=== PATIENT | female | born 1965 | race Caucasian/White ===

== ENCOUNTER 2020-01-23 08:21 | Day surgery (SDC) | payer SELFPAY ==
--- NOTE | 2020-01-17 10:27 | EKG12_ITS ---
Test Reason : PREOP Blood Pressure : / mmHG Vent. Rate : 066 BPM Atrial Rate : 066 BPM P-R Int : 266 ms QRS Dur : 082 ms QT Int : 388 ms P-R-T Axes : 065 095 066 degrees QTc Int : 406 ms Sinus rhythm with 1st degree A-V block Low voltage QRS Borderline ECG Confirmed by ELMIRA MCKEON, REILLY ([id number]), news videotape editor FELICITAS LARKIN ([id number]) on 01/21/2020 8:08:55 AM Referred By: Sybil Trejo Confirmed By:SINDY KU MD
[2020-01-17 10:28] LABS: Hematocrit 28.4 % (37-47); Hemoglobin 8.5 g/dL (12.0-15.0); Mean Corp Hgb Conc 29.9 g/dL (32-36); Mean Corpuscular Hgb 22.9 pg (27.0-32.0); Mean Corpuscular Volume 76.5 fL (81-99); Mean Platelet Vol. 9.2 fl (6.2-12.0); Platelet Count 212 K/mm3 (150-450); Red Blood Count 3.71 M/mm3 (4.2-5.4); White Blood Count 3.6 K/mm3 (4.4-11.0)
[2020-01-17 10:58] LABS: Anion Gap 5 (5-15); BUN 16 mg/dL (7-18); BUN/Creat Ratio 18.7 RATIO (10-20); Calcium,Total 8.8 mg/dL (8.5-10.1); Chloride 108 mmol/L (98-107); Creatinine, Serum 0.86 mg/dL (0.55-1.02); EST Glomerular Filtration Rate 73 mL/min (>60); Est Glom Filt Rate - Afr Amer 88 mL/min (>60); Glucose 95 mg/dL (74-106); Potassium 3.8 mmol/L (3.5-5.1); Sodium Level 141 mmol/L (136-145)
--- NOTE | 2020-01-21 12:42 | PCM.HP.BLA ---
History and Physical Date of Admission: 01/23/20 Sybil Iniguez Physician Specialty: DIRECTOR MARKETING ANALYTICS H&P Signed Encounter Date: 01/13/2020 Expand AllCollapse All Hide copied text Marga for details Anisa Wadsworth is a 54 year old female who presents for pre op exam. Pt is scheduled for LAVH, Bilateral salpingectomy, Cystoscopy for AUB, Pelvic pain, enlarged uterus- declines Hormonal therapy. Patient denies any chest pain, shortness of breath or dizziness. ? PAST MEDICAL HISTORY PAST MEDICAL HISTORY Diagnosis Date ? Essential hypertension, benign ? ? PAST SURGICAL HISTORY PAST SURGICAL HISTORY Procedure Laterality Date ? DELIVERY ONLY ? 08/04/1998 ? , low cervical ? DELIVERY ONLY ? 08/29/2000 ? , low cervical ? LAP CHOLECYSTECT/CHOLANGIOGRAPHY ? 08/30/06 ? REPAIR UMBILICAL MARION,5+Y/O,REDUC ? 08/30/06 ? Hernia repair, umbilical >5yr ? FAMILY HISTORY FAMILY HISTORY Problem Relation Age of Onset ? Diabetes Mother ? ? Arthritis Mother ? ? Hypertension Mother ? ? Heart Father ? ? Arthritis Father ? ? Hypertension Father ? ? Seizures Child ? ? Thyroid Sister ? ? SOCIAL HISTORY Social History ? Tobacco Use ? Smoking status: Never Smoker ? Smokeless tobacco: Never Used Substance Use Topics ? Alcohol use: No ? Drug use: No ? CURRENT MEDICATIONS Current Outpatient Medications Medication Sig ? MEDICATION, NON-DATABASE Aloe Vera juice ? No current facility-administered medications for this visit. ? Allergies As of Date: 01/13/2020 (No Known Allergies) Fully Assessed 01/13/2020 ? ? REVIEW OF SYSTEMS Abdomen: No bloating, early satiety, indigestion, or increased flatulence. Bladder: no dysuria . Expanded ROS: GENERAL: Negative for fever Allergies and current medication updated:Yes ? EXAM: BP 136/86 Ht 5' 5.5 (1.66m) Wt 185 lb (83.9kg) LMP 01/06/2020 BMI 30.31 kg/(m^2). GENERAL: pleasant, female in no apparent distress HEENT: Normocephalic and atraumatic NECK: full range of motion DERMATOLOGY: Normal, without lesions, non-icteric and non-hirsute CARDIAC: regular rate and rhythm CHEST: Clear to auscultation Normal inspiratory effort NEURO: alert and oriented x3,exam grossly non-focal EXTREMITIES: normal ? Enlarged anteverted uterus that measures 121 mm x 54 mm x 74 mm. Anterior, intramural fibroid noted. The central endometrium complex measures 8.6 mm in combined thickness. No abnormal ?blood flow to suggest a polyp or focal endometrial pathology is observed within the endometrial complex. The contour of the endometrial cavity was normal on 3-D imaging. Both ovaries are not visualized. There is no free fluid visualized in the peritoneal cavity. Recommendations Follow up as clinically indicated. Menstrual History LMP on 10/05/2019 Method ====== Transvaginal ultrasound examination. 3D ultrasound examination Uterus ====== Uterus: Visualized Uterus position: anteverted Uterus long 121 mm Uterus ap 54 mm Uterus tr 74 mm Uterus Vol 254.4 cm? Endometrial thickness, total 8.6 mm Right Ovary ========= Rt ovary: Not visualized Left Ovary ======== Lt ovary: Not visualized Cul de Sac ========= Visualized. no free fluid visualized Performed By: Deisi Staley RDMS, RVT Read By: ?Ivory Greene M.D. ? ASSESSMENT AND PLAN: Encounter Diagnosis ? ? ICD-10-CM ? 1. Abnormal uterine bleeding (AUB) N93.9 ? 2. Post-op pain G89.18 oxyCODONE IR (ROXICODONE) 5 mg immediate release tablet 3. Pelvic pain in female R10.2 ? 4. Enlarged uterus N85.2 ? ? 5. Pre op instructions reviewed. covid testing reviewed 6. Pt has been counseled on risks/benefits and alternatives of surgery including but not limited to anesthesia, bleeding, infection, injury to pelvic structures including bowel, bladder, ureters and vessels. Pt wishes to proceed with surgery at this time. 7. Post op meds given- pt requesting dc home same day if no complications and meets discharge requirements. ? Sybil Trejo MD ? Procedure Criteria Procedure Type: Elective COVID Risk Discussion: The surgeon/proceduralist and patient have discussed in detail the risk of exposure to and/or potential harm posed by the COVID-19 virus with having a surgery/procedure at this time versus the risk of delaying the surgery/procedure. It is not possible to know either the risk of delaying the surgery or procedure or chance of getting an infection with perfect accuracy, but a joint decision was made between the patient and the surgeon/proceduralist to proceed at this time with the scheduled surgery/procedure as indicated on the consent form.
[2020-01-23] VITALS (12 sets, daily range): BP systolic 109–154; BP diastolic 66–91; PULSE 50–71; RESP 16–18; TEMP 36.3–36.6; O2SAT 100; BMI 30.4
[2020-01-23] MEDS: Lactated Ringers 1,000 ML 40 ML IV ×2 (08:58→13:59)
[2020-01-23] MEDS: Scopolamine 1mg/72hr Patch 1 PATCH TRANSDERM. (09:02)
[2020-01-23] MEDS: Celecoxib 200 MG Capsule 400 MG PO (09:03)
[2020-01-23] MEDS: Enoxaparin 40 MG/0.4 ML Syringe SC (09:03)
[2020-01-23] MEDS: Gabapentin 600 MG Tablet PO (09:03)
[2020-01-23] MEDS: Acetaminophen 500 MG Tablet 1000 MG PO (09:04)
[2020-01-23] MEDS: Phenazopyridine 95 MG Tablet 190 MG PO (09:04)
[2020-01-23 09:11] LABS: Internal QC Validated? YES +Cl - CLEAR BKGD
[2020-01-23 09:12] LABS: Pregnancy, Urine Negative Negative
[2020-01-23 09:25] LABS: Bedside Glucose 92 mg/dL (70-110)
[2020-01-23] MEDS: Cefazolin 2 GM in 0.9% Normal Saline 100 ML IV (11:00)
[2020-01-23] MEDS: dexAMETHasone 10 MG/ML Vial 8 MG IV (12:20)
--- NOTE | 2020-01-23 12:30 | HYST_PTH ---
PATIENT: RICK NEW LOC: [facility] U#:[id number] AGE/SX: 54/F ROOM: RE01/23/[address]: Dr. Sybil Trejo, MDDOB: 1965 BED: DIS: 01/23/2020 SPEC #: [id number] RECD: 01/23/20 14:15 STATUS: PEDRO LUIS JONY #: [id number] SACHI: 01/23/20 12:[address]: Sybil Trejo DEPT: SURGICAL PATHOLOGY RECD BY: Nakul Luo ENTERED: 01/23/20 15:06 SP TYPE: HYSTERECT OTHR DR: Dr. Daniel Gabriel MD Tissues: Uterus, NOS Procedures: Surgery Specimen Level V HEADER OPERATION: ERAS, hysterectomy, LAVH, salpingectomy, Cysto PRE-OP DIAGNOSIS: Abnormal uterine bleeding TISSUE SUBMITTED: Uterus and bilateral fallopian tubes MICROSCOPIC DIAGNOSIS Uterus and bilateral fallopian tubes, vaginal hysterectomy and bilateral salpingectomy: Cervix - chronic cystic cervicitis. Endometrium - proliferative endometrium. Myometrium - adenomyosis. Serosal surface - focal changes consistent with serosal adhesions. Bilateral fallopian tubes - no pathologic diagnosis. Paratubal cyst. SJ:rg 01/24/20 MICROSCOPIC DESCRIPTION Slides are reviewed. GROSS DESCRIPTION Received in fixative is one container labeled with the patient's name and designated uterus and bilateral fallopian tubes. The specimen consists of a hysterectomy specimen consisting of uterus with cervix and detached bilateral fallopian tubes. The uterus with cervix weighs 200 gm and measures 12 x 8 x 4.5 cm. The serosal surface is congested. The ectocervical mucosa is unremarkable. The external os is oval and patulous in contour. The endocervical canal measures 4 cm in length and the endocervical mucosa is morales, glistening and unremarkable. Sections of the cervix reveal multiple cysts filled with mucoid material. The triangular endometrial cavity measures 6 cm in length and up to 3 cm in width. The endometrium is morales, glistening without any mass lesion and measures 0.1 cm in thickness. Sections of the uterine wall reveal multiple punctate hemorrhagic areas suspicious for adenomyosis. The uterine wall measures up to 2.5 cm in thickness. The fallopian tubes are not identified as right or left. One of the fallopian tubes measures 4.5 cm in length and 0.7 cm in diameter. The fimbrial end is identified. Sections do not reveal any mass lesion. A paratubal cyst is noted measuring 0.7 cm in greatest dimension. The second fallopian tube measures 3 cm in length and 0.7 cm in diameter. The fimbrial end is identified. Sections reveal unremarkable cut surfaces. Certified Indoor Environmentalist sections are submitted in eight cassettes as follows: 1?- anterior cervix, 2 - posterior cervix, 3 & 4 - anterior uterine wall, 5 & 6 - posterior uterine wall, 7 - one fallopian tube and paratubal cyst, 8 - second fallopian tube. / DAVE:marvin 01/23/20 TC:5 CPT: 28678
[2020-01-23] MEDS: Bupivacaine Mpf 0.5% 30 ML VIAL (12:50)
--- NOTE | 2020-01-23 13:09 | OP.PCM_ITS ---
Report of Operation Date of Procedure: 01/23/20 - start time 1131: end time 1317 Pre-Operative Diagnosis: AUB, enlarged uterus, endometrial polyp, Anemia Post-Operative Diagnosis: same, abdominal wall hernia Surgery/Procedure Performed:: LAVH, Bilateral salpingectomy, cystoscopy, lysis of adhesions Description of Surgical Findings:: large anterior abdominal wall hernia- Omentum adherent - lysis of adhesions performed. Dr. Banks called intraop for recommendation- he recommends repair at later date translational specialist: Tonya Veliz - assisted with procdure- manipulation of uterus, lysis of ahesions Type of Anesthesia:: General Specimen's removed: uterus, bilatearl fallopian tubes, cervix Drains: none Estimated Blood Loss (mL): 50 Fluids Replaced: 1100 Description of Procedure: Patient take to OR and prepped and draped in usual sterile fashion in dorsal lithotomy position with her arms tucked in a neurologically safe and neutral position. The uterus sounded to 12cm. The [employer] uterine manipulator and fatima were placed. Attention was turned to the abdomen. All port sites were infiltrated with 0.5% marcaine before the incisions were made. The anterior abdominal wall was tented up with towel clamps and using a direct entry approach a 5 mm supraumbilical port was placed. Intraperitoneal placement was confirmed with the laparoscope and the pneumoperitoneum was created. The patient was placed in Trendelenburg and 5 mm right and left lower quadrant ports were placed under direct visualization. large abdominal wall hernia appreciated. Dr. Banks- general surgery called to decide mgmt - recommend repair at later date. Adhesions of omentum taken down from hernia sac. The bowel was swept away. Ovaries appeared normal. The mesosalpinx starting at fibriated end were grasped, clamped, sealed and transected with the Ligasure. The round ligaments were divided. The anterior peritoneum was dissected down to create the bladder flap with blunt dissection and the LigaSure. The uterine arteries were isolated, clamped, sealed and cut. There was minimal back bleeding from the uterus. Attention was turned to the vaginal portion of the case. The anterior and posterior vagina was infiltrated w/ lidocaine with dilute epinephrine. A circumfrential incision was made with scapel, anterior colpotomy was made with blunt and sharp dissection. The posterior culdesac was entered sharpy with curved munguia scissors. Heny clamps were placed, pedicles were transected and suture ligated. this was performed on cardinal and uterosacral ligaments. Once the uterus was freed the specimen was removed without difficulty. The specimen was handed off. The cuff was closed with interrupted 0-vicryl figure of 8 sutures. A modified Mccalls with 2-0 PDS was placed thru posterior cuff, both uterosacrals and secured in the midline. Cystoscopy performed- both jets noted and bladder intact. The pneumoperitoneum was recreated and the cuff and pedicles were hemostatic. Deshaun placed over cuff. The skin incisions were closed with skin glue and 3-0 monocryl. The vaginal sweep was completed by me. Grafts/Implants Used: none Grafts/Implants Used: none - Complications none - Admit VTE Documentation VTE Present on Admission: Yes VTE Mechan Device Prophylaxis: SCD's VTE Pharm Prophylaxis ordered?: Yes
--- NOTE | 2020-01-23 13:23 | DCINST_ITS ---
Discharge Diet: No Restrictions Discharge Activity: Return to Normal Activity, May Not Drive - while taking narcotic pain medications., May Shower May shower in (days): 1 May resume sexual activity in: 8 weeks Lifting Restrictions: 20 Call your doctor if your incision/area has: Continuous Slow Oozing, Sudden Increased Bleeding, Increased Pain/ Swelling, Increased Redness, Foul Smelling Discharge Call your doctor if you observe: Fever of 101 or Higher, Inability to urinate, Inability to have a bowel movement, Using more than one pad per hour Cleanse incision/area with: - - you have skin glue on incision sites- do not pick off. May let soap and water run over incision sites and dab dry. Allergies/Adverse Reactions: Allergies No Known Allergies Allergy (Verified 01/23/20 08:49) Medications to take at Discharge [place]-3 Fatty Acids/Fish Oil [Fish Oil 1,000 mg Capsule] 1 ea PO BID 01/16/20 Orders to be completed after discharge: T&S with Crossmatch, Red Cells Time Frame: 01/23/20, Location: None Selected Primary Care Physician: Daniel Gabriel MD [Primary Care Provider] - Test Results: Test results from this visit will be discussed in further detail at your follow- up appointment, if applicable. Please Follow Up With: Sybil Trejo MD When: as scheduled in 2 weeks Please Follow Up With: Dr. Aroldo Banks (general surgery) When: for repair of abdominal wall hernia at later date.
[2020-01-23] MEDS: Ondansetron 4 MG/2 ML Vial IV (13:30)
[2020-01-23] MEDS: Ketorolac 30 MG/ML Syringe IV (14:22)
[2020-01-23 16:32] LABS: Hematocrit 31.3 % (37-47); Hemoglobin 9.2 g/dL (12.0-15.0); Mean Corp Hgb Conc 29.4 g/dL (32-36); Mean Corpuscular Hgb 22.9 pg (27.0-32.0); Mean Corpuscular Volume 77.9 fL (81-99); Mean Platelet Vol. 10.1 fl (6.2-12.0); Platelet Count 165 K/mm3 (150-450); RBC Distribution Width CV 14.4 % (11.6-14.6); RBC Distribution Width SD 40.5 fl (35.1-43.9); Red Blood Count 4.02 M/mm3 (4.2-5.4); White Blood Count 9.8 K/mm3 (4.4-11.0)
== END 2020-01-23 18:34 | disposition home or self-care (01) ==
LOC: SDC 08:24 → AC 08:26
PROVIDERS: Anesthesiology; PCP Family Medicine; Referring Provider Obstetrics & Gynecology; Visit Provider Obstetrics & Gynecology
PROC: 0UT9FZZ Resection of Uterus, Via Natural or Artificial Opening With Percutaneous Endoscopic Assistance (ICD-10-PCS; CPT 58552; principal; 2020-01-23 12:05)
DX: N80.0 Endometriosis of uterus (principal); N83.8 Other noninflammatory disorders of ovary, fallopian tube and broad ligament; D64.9 Anemia, unspecified; K43.9 Ventral hernia without obstruction or gangrene; Z11.59 Encounter for screening for other viral diseases
CPT/HCPCS: 00944; 58552; 36415; 80048; 81025; 82962; 83735; 85027; 86850; 86900; 86901; 86920; 86922; 87635; 88307; 93005; C9803; J7040; J7120; J2405; U0003

== ENCOUNTER → 2022-01-07 | Outpatient (CLI) | payer OTHER, SELFPAY ==
[2022-01-07 10:25] LABS: Mucous, Urine 0 SEEN /hpf (<or=2+); Red Blood Cells-Urine 0 SEEN /hpf (0-5); Squamous Epithelial Cells - UA 0 SEEN /hpf (5-10)
[2022-01-07 11:14] LABS: Color, Urine Yellow (Yellow); Glucose, Dipstick Normal (Normal); Ketone-Dipstick Negative (Negative); Leukocyte Esterase-Dipstick 500 /ul (Negative); Nitrite-Dipstick Positive (Negative); Occult Blood-Urine Negative /ul (Negative); Protein-Dipstick Negative (Negative); Urine Bilirubin Dipstick Negative (Negative); Urine Clarity Sl. Cloudy (Clear); Urine Urobilinogen Normal (Normal); Urine pH 6.5 (5.0 - 8.0)
[2022-01-07 11:22] LABS: Bacteria 3+ /hpf (None Seen); Transitional Epithelial - Ur 0-5 SEEN /hpf (0-5); White Blood Cells 10-25 SEEN /hpf (0-5)
== END | disposition home or self-care (01) ==
LOC: LAB 10:18
PROVIDERS: PCP Nurse Practitioner Family; Referring Provider Surgery; Visit Provider Surgery
DX: Z87.440 Personal history of urinary (tract) infections (principal)
CPT/HCPCS: 36415; 81001; 87077; 87086; 87088; 87186

== ENCOUNTER 2022-02-02 10:59 | Observation (INO) | payer SELFPAY, OTHER ==
--- NOTE | 2022-02-01 10:52 | EKG12_ITS ---
Test Reason : PREOP Blood Pressure : / mmHG Vent. Rate : 075 BPM Atrial Rate : 075 BPM P-R Int : 214 ms QRS Dur : 082 ms QT Int : 370 ms P-R-T Axes : 043 084 052 degrees QTc Int : 413 ms Sinus rhythm with 1st degree A-V block Otherwise normal ECG Confirmed by ALIYAH MCKEON, AMBERLY ([id number]), industrial editor FELICITAS LARKIN ([id number]) on 02/02/2022 11:07:31 AM Referred By: Moises Motley Confirmed By:AMBERLY LY MD
[2022-02-01 11:42] LABS: Hematocrit 39.2 % (37-47); Hemoglobin 13.4 g/dL (12.0-15.0); Mean Corp Hgb Conc 34.2 g/dL (32-36); Mean Corpuscular Hgb 29.3 pg (27.0-32.0); Mean Corpuscular Volume 85.8 fL (81-99); Mean Platelet Vol. 8.6 fl (6.2-12.0); Platelet Count 205 K/mm3 (150-450); RBC Distribution Width SD 37.3 fl (35.1-43.9); Red Blood Count 4.57 M/mm3 (4.2-5.4); White Blood Count 5.7 K/mm3 (4.4-11.0)
[2022-02-01 12:37] LABS: Anion Gap 8 (5-15); BUN 16 mg/dL (7-18); BUN/Creat Ratio 18.2 RATIO (10-20); Calcium,Total 9.7 mg/dL (8.5-10.1); Chloride 106 mmol/L (98-107); Creatinine, Serum 0.88 mg/dL (0.55-1.02); EST Glomerular Filtration Rate 70 mL/min (>60); Est Glom Filt Rate - Afr Amer 85 mL/min (>60); Glucose 104 mg/dL (74-106); Sodium Level 140 mmol/L (136-145)
[2022-02-02] VITALS (11 sets, daily range): BP systolic 124–149; BP diastolic 72–83; PULSE 53–70; RESP 14–18; TEMP 36.1–36.9; O2SAT 98–100; BMI 28.8; BMI 28.7
--- NOTE | 2022-02-02 06:57 | DCINST_ITS ---
Discharge Instructions Procedure General Surgery Diet Discharge Diet: Light diet - advance as tolerated (if you have questions about your diet instructions, please talk to you doctor.) Activity Discharge Activity: May Not Drive (for 3-5 days or while taking narcotic pain medicine.) May shower in (days): 1 Lifting Restrictions: 10 pounds Dressing / Incision Call your doctor if your incision/area has: Continuous Slow Oozing, Sudden Increased Bleeding, Increased Pain/ Swelling, Increased Redness and Foul Smelling Discharge Call your doctor if you observe: Fever of 101 or Higher Suture Line Care: Avoid Pulling/Pushing and Avoid Pinching/Bending Additional Dressing/Incision Instructions:: Change or remove dressing in 4 days. Leave steri-strips in place for 1 week. Follow Up Care Please Follow Up With: Moises Motley MD When: Call [phone] to make an appointment to be seen in about 10 days. Test Results: Test results from this visit will be discussed in further detail at your follow- up appointment, if applicable. Discharge Plan Admission Admit Date/Time: 02/02/22 10:59 Primary Reason for Your Visit: Incarcerated incisional hernia Attending Provider: Moises Motley Primary Care Provider: Clarissa Cornejo Instructions Additional Instructions / Restrictions: Please alternate narcotic pain medication with Tylenol as needed for pain. Recommend taking Miralax daily for assistance with bowel habits. Recommend using the heating pad as needed for comfort Follow-up in 10 days with our office. Please call our office to schedule an appointment. Discharge Orders/Prescriptions Prescriptions: New oxycodone 5 mg Tablet 5 mg PO Q6H PRN PRN (Reason: Pain Score 1-10/10) 4 Days Qty: 12 0RF Referrals / Follow Up: Moises Motley MD [Med Staff - Active Staff] - (Please contact our office for a follow-up appointment for 10 days post-operative ) Clarissa Cornejo, SARWAT-C [Primary Care Provider] - Disposition Disposition (needs filled in before D/C Order can be placed): Home, Self Care
--- NOTE | 2022-02-02 06:57 | HP.PCM_ITS ---
History and Physical Date of Admission: 02/02/22 Visit Reasons:?Hernia Chief Complaint: Hernia Molder Inflated Ball Required: No Is patient in pain?: No Allergies No Known Allergies Allergy (Verified 01/07/22 09:46) Medications NK? 01/07/22 [History Confirmed 01/07/22] PFSH Surgical History?(Updated 01/07/22 @ 09:44 by Kenya Monday) History of History of cholecystectomy History of hysterectomy Family History?(Updated 01/07/22 @ 09:45 by Kenya Monday) Mother Hypertension High cholesterolSon Seizures Social History?(Updated 01/07/22 @ 09:46 by Kenya Monday) Smoking Status:? Never smoker alcohol intake:? never substance use type:? does not use HPI HPI HPI: RICK NEW, is a 56 F who presents to the office today for surgical evaluation of a ventral hernia.? On January 23, 2020 Dr. Roel Valentin performed a laparoscopic assisted vaginal hysterectomy with bilateral salpingectomy and cystoscopy and lysis of adhesions.? Dr. Aroldo Banks was asked to present to evaluate a large anterior abdominal wall hernia with adherent omentum.? No repair at that time was recommended.? The patient stated that at a later time she saw Dr. Banks and no repair was recommended.? It is noted that at the time of the patient's surgery adhesions of the omentum were laparoscopically lysed.? The patient now is complaining that the hernia is significantly enlarging and is becoming more symptomatic particularly when she is lifting or reaching overhead.? There is been no evidence of obstruction but she is not able to completely reduce the bulge. ROS General General: No weight change, appetite, fatigue, colon cancer, breast cancer or weakness HEENT HEENT: No difficulty swallowing, eye injury, eye surgery, swollen glands or hoarseness Endo Endocrine: No thyroid disease, diabetes mellitus, thyroid cancer, Hair loss, heat intolerance or cold intolerance Skin Skin: No rash or changing moles Musc Musculoskeletal: No back problems, arthritis, rheumatoid arthritis, gout or joint pain Cardio Cardiovascular: No murmur, pacemaker, heart disease, atrial fibrillation, high blood pressure, heart attack, heart stent, palpitations, shortness of breat with exertion or chest pain Psych Psychiatric: No depression, anxiety or hearing voices Resp Respiratory: No shortness of breath, No sleep apnea, No cough, No COPD, No asthma, No emphysema and No wheezing Gastro Gastrointestinal: No abdominal pain, No nausea or vomiting, No diarrhea, No constipation, No blood in stool, No acid reflux, No hemorrhoids, No ulcers, No gallbladder problem and No black,tarry stools Kelechi Hematologic: No blood thinners, No blood disorders, No bleeding, No anemia and No blood clots Neuro Neurologic: No system reviewed and no additional complaints, except as documented, No as per HPI, No abnormal gait, No abnormal hearing, No abnormal movements, No abnormal speech, No behavioral changes, No burning sensations, No confusion, No convulsions, No disequilibrium, No dizziness, No localized weakness, No frequent falls, No headache(s), No lack of coordination, No loss of vision, No memory loss, No numbness, No other visual disturbances, No radicular pain, No restless legs, No sensory deficit, No syncope, No tingling, No tremor(s), No weakness and No other Exam Const General: cooperative, comfortable and no acute distress [facility] Head: normal to inspection Eyes General: appearance normal, both eyes and all related structures Neck Neck: normal visual inspection Resp Effort & Inspection: normal respiratory effort Auscultation: clear to auscultation bilaterally Cardio Rate: regular rate Rhythm: regular rhythm GI Palpation: soft Other: Overweight, infraumbilical sizable 8 x 10 cm soft tissue bulge, palpable midline fascial defect noted Musc Cervical Spine: normal cervical lordosis Skin General: no rashes or lesions noted Neuro General: patient alert, patient awake and patient oriented x3 Extrem General: no calf tenderness Psych Appearance: grossly normal Assessment and Plan Assessment and Plan (1) Hernia: (2) Incarcerated incisional hernia: ?Status:?Acute ?Plan: The patient has a infraumbilical midline incarcerated incisional hernia related to 2 previous Pfannenstiel C-sections.? She has had a history of laparoscopic vaginal assisted hysterectomy with omentum adherent.? Her defect is enlarging and becoming symptomatic. I proposed for her a laparoscopic repair.? I have instructed her that it is likely that bladder mobilization will be required in order to place a retropubic piece of mesh.? She is aware that I will attempt to do all of the vast majority of this laparoscopically but that conversion to an open technique may be required.? She is aware of the technique, benefit, risk of alternatives.? No guarantees of success are offered.? She is aware that recurrence is a risk and that she will need to allow a extended recovery..? She has had an opportunity to ask and have questions answered.? As it is now symptomatic she is interested in proceeding with treatment. I appreciate the opportunity of assisting with her surgical care Copy: Dr. Daniel Motley M.D., F.A.C.S I have re-examined the patient. There are no clinical changes since date of exam. Moises Motley M.D., F.A.C.S.
[2022-02-02] MEDS: Lactated Ringers 1,000 ML 15 ML IV (07:00)
[2022-02-02] MEDS: Cefazolin 2 GM in 0.9% Normal Saline 100 ML IV (07:24)
--- NOTE | 2022-02-02 07:30 | HERN_PTH ---
PATIENT: RICK NEW LOC: [facility] U#:[id number] AGE/SX: 56/F ROOM: [facility] RE02/02/[address]: Dr. Moises Motley MD : 1965 BED: 1 DIS: 02/03/2022 SPEC #: [id number] RECD: 02/02/22 12:51 STATUS: PEDRO LUIS FRIEDNina #: [id number] SACHI: 02/02/22 07:[address]: Moises Motley DEPT: SURGICAL PATHOLOGY RECD BY: Nakul Luo ENTERED: 02/02/22 13:28 SP TYPE: Hernia OTHR DR: Clarissa Cornejo, RADIO EQUIPMENT INSTALLER-C Tissues: HERNIA Procedures: Surgery Specimen Level II HEADER OPERATION: Laparoscopic incarcerated ventral/incisional hernia repair with mesh PRE-OP DIAGNOSIS: Incarcerated incisional hernia TISSUE SUBMITTED: Hernia sac MICROSCOPIC DIAGNOSIS Hernia sac: Fragments of fibroadipose and fibroconnective tissue, clinically hernia sac. DAVE:marvin 02/03/2022 MICROSCOPIC DESCRIPTION Slides are reviewed. GROSS DESCRIPTION Received in fixative is one container labeled with the patient's name and designated hernia sac. The specimen consists of four variable sized pieces of morales-yellow soft tissue measuring in aggregate 8 x 6 x 1 cm. No mass lesion is identified. Farmworkers sections are submitted in one cassette. / DAVE:marvin 02/02/2022 TC:5 CPT: 49641
[2022-02-02] MEDS: BUPIVACAINE LIPOSOME/PF 20 ML VIAL OPERA.SITE (07:48)
[2022-02-02] MEDS: 0.9% Normal Saline (Pres. free 10 ML Vial (07:48)
--- NOTE | 2022-02-02 10:49 | OP.PCM_ITS ---
Report of Operation Date of Procedure: 02/02/22 Pre-Operative Diagnosis: Infraumbilical ventral incisional hernia with incarcer ated omentum. Post-Operative Diagnosis: Same Surgery/Procedure Performed:: Open/laparoscopic herniorrhaphy with bilateral transabdominal plane block. Ventral light ST mesh 20.3 cm x 25.4 cm customized to extend retropubically. Reference [id number]. Lot number [id number]. Expiry date 04/11/2023 3 secure straps utilized Description of Surgical Findings:: Timeout informed consent was obtained. 56-year-old female was taken to the operating placed on table underwent general endotracheal intubation anesthesia. Horowitz catheter was placed to gravity. Ancef 2 g were given esomeprazole venously. The abdomen sterilely prepped draped. Ioban draping was used. A transverse incision was made directly over the infraumbilical defect sharp dissection carried down through the subtenons tissue the hernia sac identified was opened there was incarcerated omentum within this had to be electrocautery and sharply dissected free from the hernia sac. Omentum was completely freed and then the excess hernia sac was excised circumferentially using electrocautery dissection. Specimen was submitted. The fascia was then ap proximated vertically with simple sutures of 0 Nurolon. Prior to complete closure catheter was inserted. the abdomen was insufflated with co2 to a pressure of 10 mmhg pressure. under direct visualization 5 mm trochars were placed in the epigastric and bilateral midclavicular line subcostal areas. in the infraumbilical area the anterior abdominal wall peritoneum was incised this dissection was carried distally. some bleeding from the left inferior epigastric was secured with hemoclips. blunt dissection was used to free the peritoneum and then dissected retropubically carefully dissecting the urinary bladder free. 60 cc of saline was injected into the urinary bladder to assure its dimensions and patency and location. was able to get a very nice retropubic dissection. having achieved that i then utilized the 25.4 x 20.[address] mesh. i marked and created a tongue of mesh that would extend more distally retropubically distal to the pubis. I placed 4 corner sutures of 2-0 Prolene I shorten the mesh slightly side to side and very slightly lengthwise placed the mesh within the abdomen unfurled it making sure that the antiadhesion barrier was against the omental side. Secured the sutures so that the mesh tongue extended past the pubis distally the suture was placed further back from the very edge of the mesh to allow for that. Apical suture was placed in bilate ral side sutures these were parachuted up using a grainy needle. Very excellent coverage of the midline was achieved. The sutures were secured. Secure strap was used at 1 to 2 cm intervals completely around the periphery. I then approximated what I could of the peritoneum to the low anterior abdominal wall shows to occlude access to that portion of the mesh. Due to the size of the mesh and the need to help secure intact that peritoneum I did require a third device. Care was taken to assure that there was no open spaces or gaps for potential seroma formation. I felt that excellent positioning had been achieved. I then irrigated the mesh made sure that the greater omentum was placed down deep into the pelvis completely covering the bowel. A bilateral tap block was performed by patient the patient reverse Trendelenburg position and 20 cc of Exparel mixed with 60 cc of 0.25% Marcaine and 20 cc of saline. Under laparoscopic sedation careful bilateral tap block performed. Remaining local was placed periincisional he and the subcutaneous tissues. Wounds were closed with interrupted or running subdermal 4-0 Monocryl. Steri- Strips Telfa OpSite dressings applied. Sponge and instrument and needle counts were reported to the surgeon be correct. Specimens hernia sac and contents. Drains none. Blood loss minimal. The patient was taken to the recovery room in satisfactory addition without apparent complication Moises Motley M.D., F.A.C.S. Surgeon: Moises Motley Type of Anesthesia: Block,Regional and General/Regional Anesthesiologist: Meme Monique
[2022-02-02] MEDS: Morphine 2 MG/ML Syringe IV ×3 (12:32→20:23)
[2022-02-02] MEDS: Lactated Ringers 1,000 ML 70 ML IV (12:32)
[2022-02-02] MEDS: 0.9% Saline Lock 10 ML Syringe IV ×3 (12:32→20:23)
--- NOTE | 2022-02-02 16:19 | PCM.PN.SRG ---
Subjective Subjective Patient states he is simply feels gassy. She states that she constantly takes a laxative to assist with her bowels and that she use MiraLAX. She did not include this on her home medication list however. Objective Data Objective Data Vital Signs: Vital Signs Temp Pulse Resp BP Pulse Ox O2 Del Method 97.7 F L 58 L 14 138/80 H 100 Room Air 02/02/22 14:08 02/02/22 14:08 02/02/22 14:08 02/02/22 14:08 02/02/22 14:08 02/02/22 14:08 Oxygen Delivery Method Room Air Weight: 178 lb Body Mass Index (BMI) 28.7 Intake & Output: Intake and Output for Last 24 Hours 01/31/22 02/01/22 02/02/22 23:59 23:59 23:59 Intake Total 110 / 110 Output Total 1205 / 1205 Balance -1095 / -1095 Lab / Micro Data Result Diagrams: 02/01/22 11:28 02/01/22 11:28 Physical Exam GI GI Narrative: Abdominal binder in place. Distended. Quiet. Assessment & Plan Assessment/Plan (1) Incarcerated incisional hernia: PLAN: Plan Horowitz catheter draining now more tim-colored urine. Adequate volume. The patient is now getting mobilized. We will hold it sips and chips. Will review the patient in the morning. She has been encouraged to mobilize and ambulate. Moises Motley M.D., F.A.C.S.
[2022-02-03 02:45] VITALS: BP 124/69; PULSE 69; RESP 16; TEMP 36.7; O2SAT 97
[2022-02-03] MEDS: Acetaminophen 325 MG Tablet 650 MG PO ×2 (02:49→12:09)
[2022-02-03] MEDS: Lactated Ringers 1,000 ML 70 ML IV (02:51)
--- NOTE | 2022-02-03 06:59 | PCM.PN.SRG ---
Subjective Subjective Patient believes that she is doing well. She is comfortable completely at rest. When she moves particular getting out of bed it is somewhat uncomfortable. Her last morphine was last evening. This morning she took Tylenol. She has had some flatus. Denies nausea. She was working on her incentive spirometer when I entered the room. Objective Data Objective Data Vital Signs: Vital Signs Temp Pulse Resp BP Pulse Ox O2 Del Method 98.1 F 69 16 124/69 H 97 Room Air 02/03/22 02:45 02/03/22 02:45 02/03/22 02:45 02/03/22 02:45 02/03/22 02:45 02/03/22 02:45 Oxygen Delivery Method Room Air Weight: 178 lb Body Mass Index (BMI) 28.7 Intake & Output: Intake and Output for Last 24 Hours 02/01/22 02/02/22 02/03/22 23:59 23:59 23:59 Intake Total 110 / 110 1000 / 1000 Output Total 1205 / 1755 550 / 550 Balance -1095 / -1645 450 / 450 Lab / Micro Data Result Diagrams: 02/01/22 11:28 02/01/22 11:28 Physical Exam Const oriented x3 Resp normal respiratory effort and clear to auscultation bilaterally GI GI Narrative: Soft, abdominal binder in place, bowel sounds present Assessment & Plan Assessment/Plan (1) Incarcerated incisional hernia: PLAN: The patient is making very excellent progress for the degree of surgical intervention. I will remove the catheter and initiate clear liquids. Hopeful discharge later today. Moises Motley M.D., F.A.C.S.
[2022-02-03 08:45] VITALS: BP 131/67; PULSE 64; RESP 18; TEMP 36.6; O2SAT 100
[2022-02-03] MEDS: oxyCODONE 5 MG Tablet PO ×2 (09:15→14:22)
[2022-02-03 12:45] VITALS: BP 128/66; PULSE 66; RESP 18; TEMP 36.6; O2SAT 99
[2022-02-03 14:00] VITALS: BP 131/67; PULSE 64; RESP 18; TEMP 36.6; O2SAT 100
[2022-02-03 17:54] VITALS: BP 139/86; PULSE 79; RESP 18; TEMP 37.2; O2SAT 98
== END 2022-02-03 18:07 | disposition home or self-care (01) ==
LOC: SDC 12:01 → MS3 12:01
PROVIDERS: Admitting Provider Surgery; PCP Nurse Practitioner Family; Referring Provider Surgery; Visit Provider Surgery
PROC: 0WQF4ZZ Repair Abdominal Wall, Percutaneous Endoscopic Approach (ICD-10-PCS; CPT 49561; principal; 2022-02-02 07:10)
DX: K43.0 Incisional hernia with obstruction, without gangrene (principal); I44.0 Atrioventricular block, first degree
CPT/HCPCS: 49561; 49568; 00752; 36415; 80048; 85027; 88302; 93005; 96374; 96376; 99218; 99251; J7120; A4216; C1781; G0378; G0463; J2405; J3490